=== PATIENT | male | born 1980 | race Caucasian/White ===

== ENCOUNTER 2023-03-08 17:35 | Emergency (ER) | payer BC ==
[2023-03-08] MEDS ORDERED: Sodium Chloride 0.9% 1,000 ML IV ONE (17:56)
[2023-03-08 18:00] VITALS: BP 177/101; PULSE 132
[2023-03-08 18:07] LABS: BASOPHILS ABSOLUTE AUTO 0.05 10^3/uL (0.00-0.50); BASOPHILS PERCENT AUTO 0.4 % (0-1); EOSINOPHILS ABSOLUTE AUTO 0.28 10^3/uL (0.00-1.50); EOSINOPHILS PERCENT AUTO 2.4 % (0-6); HEMATOCRIT 44.6 % (42.0-52.0); HEMOGLOBIN 15.8 g/dL (14.0-18.0); IMMATURE GRAN ABSOLUTE AUTO 0.01 10^3/uL (0.00-0.49); IMMATURE GRAN PERCENT AUTO 0.1 % (0.0-4.9); LYMPHOCYTES ABSOLUTE AUTO 3.11 10^3/uL (0.60-5.00); LYMPHOCYTES PERCENT AUTO 26.9 % (24-44); MEAN CORPUSCULAR HEMOGLOBIN 30.7 pg (27.0-32.0); MEAN CORPUSCULAR HGB CONC 35.4 g/dL (32.0-36.0); MEAN CORPUSCULAR VOLUME 86.8 fL (83.0-97.0); MONOCYTES ABSOLUTE AUTO 0.88 10^3/uL (0.00-1.50); MONOCYTES PERCENT AUTO 7.6 % (0-10); NEUTROPHILS ABSOLUTE AUTO 7.21 x10^3/uL (1.80-8.00); NEUTROPHILS PERCENT AUTO 62.6 % (41-71); PLATELET COUNT,PLT 258 10^3/uL (150-400); RED BLOOD CELL COUNT 5.14 x10^6/uL (4.50-6.00); WHITE BLOOD CELL COUNT,WBC 11.5 10^3/uL (4.0-11.0)
[2023-03-08 18:13] LABS: INR 1.01 (0.92-1.18); PROTHROMBIN TIME 10.4 SEC (9.3-11.3); PTT,PARTIAL THROMBOPLSTIN TIME 27.7 SEC (20.0-30.0)
[2023-03-08 18:29] LABS: BILIRUBIN TOTAL 0.6 mg/dL (0.0-1.0); CALCIUM 9.2 mg/dL (8.4-10.1); CREATININE 1.2 mg/dL (0.7-1.3); EST CRCL DRUG DOSING (CG) 71.63 mL/min; MAGNESIUM 1.8 mg/dL (1.8-2.4); POTASSIUM,K 3.4 mEq/L (3.5-5.0); PROTEIN TOTAL,TP 8.7 g/dL (6.4-8.2)
[2023-03-08] MEDS ORDERED: Potassium Chloride 10 MEQ Tab.ER PO STA (18:32)
[2023-03-08 19:00] LABS: TSH ULTRASENSITIVE 4.94 uIU/mL (0.36-5.60)
== END 2023-03-08 18:40 | disposition home or self-care (01) ==
LOC: CC.ED 17:35
DX: R07.89 Other chest pain (principal); E87.6 Hypokalemia; E78.00 Pure hypercholesterolemia, unspecified; I10 Essential (primary) hypertension; Z88.0 Allergy status to penicillin; Z88.1 Allergy status to other antibiotic agents; Z79.82 Long term (current) use of aspirin; Z79.899 Other long term (current) drug therapy
CPT/HCPCS: 36415; 71046; 80053; 83690; 83735; 84443; 84484; 85025; 85610; 85730; 93005; 93010; 99284; 99285; A9270-GY; J7030